=== PATIENT | male | born 1955 | race Caucasian/White ===

== ENCOUNTER 2017-03-10 11:12 | Inpatient (IN) | payer BC ==
[~2017-03-10] VITALS: Ht 170.2 cm; Wt 89.7 kg
--- NOTE | ~2017-03-10 | CATH ---
Cardiac Diagnostic Report Demographics Patient Name DAREK Howe Gender Male Date of 1955 Age 61 year(s) Patient Number [id number] Date of Study 03/12/2017 Visit Number [id number] Room Number G6312 [place] [id number] Ht 170.18 cm Wt 88.8 kg Referring Dane Tian MD Primary Physician Physician Performing Efstratiou Secondary Physician Physician Pelon Claire MD Diagnostic Efstratiou Assisting Physician Physician Pelon Claire MD Interventional Efstratiou Physician Manager Technical Training Physician Pelon Claire MD Findings and Conclusions Diagnostic Findings and Conclusion Grafts are patent - there is stenosis in the posterolateral branch of RCA responsible for inferior ischemia. Due to tortuosity it was impossible to fix. Diagnostic Recommendations Maximize medical therapy. Procedure Description The patient was brought to the diagnostic cardiac catheterization-EP laboratory in the fasting, non-sedated state. Informed consent was obtained in the written and verbal form after the risks and benefits were explained. The patient had no further questions and agreed to proceed. The planned puncture-incision site(s) were shaved and prepped with ChloraPrep and draped in the usual sterile manner. Conscious sedation, supplemental oxygen, and pain control medications were delivered by a registered nurse under physician guidance. Surface ECG rhythm, blood pressure measurement, and pulse oximetry were monitored throughout the procedure. Arterial access. The access site was infiltrated with lidocaine. The vessel was entered with the Seldinger technique. A sheath was advanced into the vessel and used for catheter placement. Selective left coronary angiography. A catheter was advanced into the left coronary vessel ostium under Fluoroscopic guidance. Contrast was injected by hand. Images were obtained in multiple projections. Selective right coronary angiography. A catheter was advanced into the right coronary vessel ostium under fluoroscopic guidance. Contrast was injected by hand. Images were obtained in multiple projections. Selective SVG angiography. A catheter was advanced into the graft proximal anastomosis under fluoroscopic guidance. Contrast was injected by hand. Images were obtained in multiple projections. Selective SVG angiography. A catheter was advanced into the graft proximal anastomosis under fluoroscopic guidance. Contrast was injected by hand. Images were obtained in multiple projections. Selective BRIZUELA graft angiography. A catheter was advanced into the left internal mammary graft ostium under fluoroscopic guidance. Contrast was injected by hand. Images were obtained in multiple projections. Arterial artery hemostasis was achieved. The patient was transferred to a regular nursing floor via cart accompanied by a nurse. The patient left the laboratory in stable condition. Diagnostic Cath Status: Urgent Procedure Procedure Type Diagnostic procedure:Angiography:, Coronary Angios w/Grafts Indications: Abnormal Stress Test. The procedure was explained in detail to the patient. Risks, complications and alternative treatments were reviewed. Written consent was obtained. Medications Reviewed with Patient prior to Procedure. Angiographic Findings Dominance: Right Cardiac Arteries and Lesion Findings LMCA: Lesion on LMCA: Mid subsection.10% stenosis . LAD: Lesion on Prox LAD: Ostial.100% stenosis . LCx: Lesion on Mid CX: 30% stenosis . RCA: Lesion on 1st RPL: Ramus: Lesion on Ramus: Proximal subsection.30% stenosis . Graft Lesions Lesion on Aorta Right to R PDA: 30% stenosis . Cardiac Grafts - There is a BRIZUELA graft that originates at the BRIZUELA and attaches to the Dist LAD (Patent). - There is a Vein graft that originates at the Aorta Left and attaches to the 1st Diag (Patent). - There is a Vein graft that originates at the Aorta Right and attaches to the R PDA. Coronary Tree Procedure Data Procedure Date Date: 03/12/2017Start: 08:44 AMEnd: 09:42 AM Entry Locations - Retrograde Percutaneous access was performed through the Right Femoral artery (Primary location). A 6 Fr sheath was inserted. Hemostasis was successfully obtained using Angio-Seal STS PLUS (St. Harpreet). Closure Comments: Deployed by Dr. Brito. Pressure held for 10 minutes by RT. Erika. Procedure Medications Order and Administration + + + +--------+ !Time !Medication !Dosage !Route ! + + + +--------+ !03/12/2017 08:43 AM !Versed !1 mg !I.V. ! + + + +--------+ !03/12/2017 08:45 AM !Oxygen !2 l/min !NC ! + + + +--------+ !03/12/2017 09:02 AM !Heparin (ACC_3) !7000 units !I.V. ! + + + +--------+ !03/12/2017 09:03 AM !Fentanyl !50 mcg !I.V. ! + + + +--------+ !03/12/2017 09:11 AM !Heparin (ACC_3) !2000 units !I.V. ! + + + +--------+ !03/12/2017 09:23 AM !Oxygen ! !NC ! + + + +--------+ !03/12/2017 09:26 AM !Fentanyl !50 mcg !I.V. ! + + + +--------+ !03/12/2017 09:28 AM !Oxygen !2 l/min !NC ! + + + +--------+ Devices Used - A6 Fr. BS JL 4 Diag. Catheterwas used for:Left coronary angiography. - A6 Fr. BS JR 4 Diag. Catheterwas used for:Right coronary angiography. - A6 Fr. BS IMT Diag. Catheterwas used for:BRIZUELA. - A6 Fr. MPA1 JJ Guide Catheterwas used for:SVG.Unable to cannulate the vessel. - A6 Fr. MPA1 90 cm Guide Catheterwas used for:RCA Intervention. Contrast Material - Isovue 840331 ml Fluoroscopy Time: Diagnostic: 14:12 minutes. Total: 14:12 minutes. Fluoroscopy Dose: Diagnostic: 1808 mGy. Total: 1808 mGy. Estimated Blood Loss: 30 ml. Additional [facility] PCI Information PCI Indication:PCI for high risk Non-STEMI or unstable angina. Medical History Performed Procedures and Imaging Results - Standard exercise stress testwas performed. Results were: Positive. Risk/Extent of ischemia was: Intermediate risk. Allergies - Morphine. Risk Factors The patient risk factors include:prior PCI on 08/30/2008; prior CABG on 06/16/2008;obesity, hypertension, family history of premature CAD, orally-treated diabetes mellitus, last creatinine: 0.7 mg/dl, creatinine clearance: 139.19 ml/min and dyslipidemia. Admission Data Admission Date: 03/10/2017 Admission Time: 01:13 PM Admit Source: Emergency department Insurance Payors: Private health insurance. Admission Medications + +------+------+ + + + + !Medication !Dosage!Times !Last !Last !Administered !Comments ! ! ! !Per !Delivery !Delivery ! ! ! ! ! !Day !Date !Time ! ! ! + +------+------+ + + + + !Beta Guadalupe! ! ! ! !Yes ! ! !(any) ! ! ! ! ! ! ! + +------+------+ + + + + !Statin (any)! ! ! ! !Yes ! ! + +------+------+ + + + + !Aspirin ! ! ! ! !Yes ! ! !(any) ! ! ! ! ! ! ! + +------+------+ + + + + !PETRONA ! ! ! ! !Yes ! ! !Inhibitor ! ! ! ! ! ! ! !(any) ! ! ! ! ! ! ! + +------+------+ + + + + !Non-Statin ! ! ! ! !Yes ! ! !(any) ! ! ! ! ! ! ! + +------+------+ + + + + Clinical Evaluation Leading to Procedure - The patient's CAD presentation was assessed as: Unstable angina. - The patient's anginal syndrome during the past two weeks was assessed as: Class IV according to the [place] Cardiovascular Society Classification System (CCS). Anti-anginal medications were prescribed during the past two weeks. The medications are: Beta Blockers and Ca channel Blockers. Snapshots Hemodynamics Condition: Rest O2 Consumption: Estimated: 230.59Heart Rate: 65 bpm Pressures (mmHg) +-----+ + !Site !Pressure ! +-----+ + !AO !146/80 (107) ! +-----+ + !AO !146/79 (106) ! +-----+ + Shunts Oxygen Values O2 Capacity 201.28 O2 Consumption 230.59 Discharge Data Discharge Date: 03/12/2017 Hospital Status: Inpatient Signatures dtt: Sofie Brito dtd: 03/12/17 0844 Physician Self Edit
--- NOTE | ~2017-03-10 | DS ---
PATIENT'S NAME: BRIDGETTE OSWALD [facility] AGE: 61 Y [address] [place]OM: [facility] [address] [place], [place] [address] LOCATION: GPCU ADMIT DATE: 03/10/2017 Discharge Summary DISCHARGE DATE: 03/12/2017 FAMILY PHYSICIAN: Keith Neil MD ATTENDING PHYSICIAN: Keith Neil DISCHARGE DIAGNOSES: 1. Chest pain. 2. Coronary artery disease. 3. Hypertension. 4. Diabetes mellitus type 2. DISCHARGE MEDICATIONS: 1. Aspirin 81 mg daily. 2. Vitamin D3 5000 units daily. 3. Tresiba 56 units daily. 4. Mobic 15 mg daily. 5. Crestor 20 mg daily. 6. Amlodipine/benazepril 5/20 one tablet daily. 7. Co Q10 daily. 8. Multivitamin daily. HOSPITAL COURSE: The patient was admitted to the hospital secondary to chest pain. He was seen in consultation by Dr. Raymundo. The patient underwent heart catheterization. It was felt medical management was the best option for Mr. Oswald. He was monitored postcatheterization and was doing well and stable and had no chest pain or shortness of breath prior to discharge. LAB AND X-RAY: Please see chart for details. KEITH NEIL MD CSM/modl /[id number] d: t: 04/17/17 0300, DISCHARGE SUMMARY
--- NOTE | ~2017-03-10 | ER ---
PATIENT'S NAME: BRIDGETTE OSWALD [facility] AGE: 61 Y [address] ROOM: [place] [address] LOCATION: GPCU ADMIT DATE: 03/10/2017 ER/Outpatient Report DISCHARGE DATE: FAMILY PHYSICIAN: Rainer Vela MD ATTENDING PHYSICIAN: Rainer Vela Admission date and time documented on the medical record. I saw the patient at 1125 hours. CHIEF COMPLAINT: Left anterior chest pain. 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 Developed some left anterior chest pressure radiating to his left shoulder. Went to [facility] and subsequently was transferred over here for cardiac workup. The patient is known to have atherosclerotic ischemic heart disease with coronary artery disease. He has had three-vessel coronary artery bypass graft. He has also had a cardiac cath with PTCA and stent placement. We did give him 4 baby aspirin orally here and started him on a nitroglycerin drip. His pain initially was about a 6-7/10, was about 3- 5/10 here in the emergency department. Went down to 0 with IV nitroglycerin drip. No recent cough, cold, flus, fever, chills, or sweats. No headache, eyes, ears, nose, throat, neck, or spine pain. No lightheadedness, dizziness, syncope, or near syncope. The patient had no diaphoresis, nausea, vomiting, shortness of breath or lightheadedness. No abdominal pain. No diarrhea. No urinary symptoms. No joint or muscle swelling, redness, or pain. No skin eruptions or rash. The patient does have insulin-dependent diabetes mellitus type 2. No other endocrine problems, neuro changes, or psych issues. HOME MEDICATIONS: See attached medication list. ALLERGIES: MORPHINE, SULFATE. SOCIAL HISTORY: Nonsmoker. Occasional intake of alcohol. SIGNIFICANT PAST MEDICAL HISTORY: Atherosclerotic ischemic heart disease with coronary artery disease, degenerative disk disease, insulin-dependent diabetes mellitus type 2, hypertension, dyslipidemia. OPERATIONS: PATIENT'S NAME: BRIDGETTE OSWALD [facility] AGE: 61 Y [address] ROOM: [place] [address] LOCATION: GPCU ADMIT DATE: 03/10/2017 ER/Outpatient Report DISCHARGE DATE: FAMILY PHYSICIAN: Rainer Vela MD ATTENDING PHYSICIAN: Rainer Vela Left ankle surgery, cervical diskectomy with cervical fusion, cardiac catheterization with PTCA and stenting. Three-vessel coronary artery bypass graft. REVIEW OF SYSTEMS: All systems reviewed by me are negative with the exception of those discussed in the history of present illness. PHYSICAL EXAMINATION: VITAL SIGNS: Temperature 98, pulse 67, respirations 16, blood pressure 147/84, O2 saturation on room air is 96%. Alis Coma Scale was 15. HEAD: Normocephalic. Eyes, ears, nose, throat, clear. NECK: Negative. SPINE: Negative. LUNGS: Clear. Good air flow. No rales, rhonchi, or wheezes. HEART: Regular. Pulses are palpable. No chest wall or ribcage pain to palpation. ABDOMEN: Soft, nondistended, and nontender. Good bowel tones. No organomegaly or abnormal mass palpable. No CVA tenderness. EXTREMITIES: No peripheral edema, cyanosis, or deformity. NEUROVASCULAR: Intact. SKIN: Clear. No skin eruptions or rash. IMAGING: Chest x-ray showed no acute infiltrate or changes. We will review x-ray with the radiologist. EKG showed sinus rhythm, rate of 67. Right bundle-branch block, inferior changes probably old. LABORATORY DATA: CMS was normal except for an elevated glucose of 156. Magnesium was 2.1. CPK was 162. [id number] cardiac enzymes showed a CK-MB of 4.9. Troponin less than 0.04. CRP was less than 0.29. TSH was 1.43. ProBNP was 74. Sedimentation rate was 2. Lactate was 1.5. Procalcitonin was less than 0.05. D-dimer was 0.19, white count was 8600, 63 segs, 25 lymphs, 9 monos, 2 eo's, 1 baso. Hemoglobin is 15.4, hematocrit 44.4, platelet count is 190,000. PTT was 25, pro-time was 9.8, with an INR of 0.93. Did give the patient 4 baby aspirin orally and started him on IV nitroglycerin drip with marked improvement in his chest discomfort. IMPRESSION: 1. Left anterior chest pain radiating to the left shoulder, unstable angina. 2. History of atherosclerotic ischemic heart disease with coronary artery disease, status post cardiac catheterization with PTCA and stenting and a three-vessel coronary artery bypass graft. PATIENT'S NAME: BRIDGETTE OSWALD [facility] AGE: 61 Y [address] ROOM: [address] [place] [id number] LOCATION: [facility] ADMIT DATE: 03/10/2017 ER/Outpatient Report DISCHARGE DATE: FAMILY PHYSICIAN: Rainer Vela MD ATTENDING PHYSICIAN: Rainer Vela 3. History of degenerative disk disease. 4. Insulin-dependent diabetes mellitus type 2. 5. Hypertension. 6. Dyslipidemia. PLAN: Discussed the patient with Dr. Rainer Vela, the patient's personal physician. We will admit the patient to PCU telemetry for further evaluation. Cardiac consultation and treatment as needed. Discussion with the patient my findings and recommendations, he understands. Accumulated critical care time 30 minutes. MD ALCIDES OBRIEN/modl /[id number] d: 03/10/172036 t: 03/11/17607, OUTPATIENT REPORT
--- NOTE | ~2017-03-10 | DS ---
PATIENT'S NAME: BRIDGETTE OSWALD [facility] AGE: 61 Y [address] ROOM: [facility] [address] [place], [place] [address] LOCATION: GPCU ADMIT DATE: 03/10/2017 Discharge Summary DISCHARGE DATE: 03/12/2017 FAMILY PHYSICIAN: Keith Neil MD ATTENDING PHYSICIAN: Keith Neil DISCHARGE DIAGNOSES: 1. Chest pain. 2. Coronary artery disease. 3. Hypertension. 4. Diabetes mellitus type 2. DISCHARGE MEDICATIONS: 1. Aspirin 81 mg daily. 2. Vitamin D3 5000 units daily. 3. Tresiba 56 units daily. 4. Mobic 15 mg daily. 5. Crestor 20 mg daily. 6. Amlodipine/benazepril 5/20 one tablet daily. 7. Co Q10 daily. 8. Multivitamin daily. HOSPITAL COURSE: The patient was admitted to the hospital secondary to chest pain. He was seen in consultation by Dr. Raymundo. The patient underwent heart catheterization. It was felt medical management was the best option for Mr. Oswald. He was monitored postcatheterization and was doing well and stable and had no chest pain or shortness of breath prior to discharge. LAB AND X-RAY: Please see chart for details. KEITH NEIL MD CSM/modl /[id number] d: 04/17/17243 t: 06/17/172052, DISCHARGE SUMMARY
--- NOTE | ~2017-03-10 | ESTC ---
Cardiac Perfusion Imaging Demographics Patient Name DAREK Howe Gender Male Patient Number [id number] Race Visit Number [id number] Ethnicity Corporate ID Room Number G6312 Accession Number [id number] Height 67 inches Date of 1955 Weight 195 pounds Alethea VELAZCO Interpreting Julia Dowling Date of study 03/11/2017 Physician Supervising /SHAYNAP Shirley Tamayo APRN [place] Technologist Ordering Physician Alisha Claire MD biomass technician Stress ECG Reading Shirley Tamayo APRN Nurse Sena March Physician ferry hand Procedure Type: Nuclear Stress Test:Cardiolite Stress Test Procedure Start time: 03/11/2017 09:11 Indications: Chest pain. Risk Factors The patient risk factors include:prior PCI on 07/11/2008;obesity, hypertension, family history of premature CAD and dyslipidemia. Conclusions Summary Perfusion Images: The overall quality of the study is good. Left ventricular cavity is noted to be normal on the stress and normal on the rest images. There is no evidence of abnormal lung activity. The right ventricle is not visualized an cannot be assessed. Impression EKG portion of exercise stress is indeterminate for ischemia by diagnostic criteria due to baseline abnormalities. Myocardial perfusion imaging is mildly abnormal. The images reveal a moderate size/moderate reversible defect in the basal to mid inferior wall consistent with ischemia . Overall left ventricular systolic function was normal. Calculated LVEF is 41% and TID ratio is 0.90. This is a intermediate risk stress test. There are no previous studies for comparison . Stress Protocols Resting ECG Sinus rhythm with RBBB Pre-stress physical exam: Patient assessed by Yosvany DISLA prior to testing. Peak HR:150 bpm HR response: Appropriate Peak BP:178/88 mmHg BP response: Appropriate Predicted HR: 159 bpm HR/BP product:43643 % of predicted HR: 94 ECG Findings Indeterminate ECG due to baseline abnormalities. Arrhythmias No rhythm abnormality. Symptoms Shortness of breath. Chest Pressure Complications Procedure complication: None. Stress Interpretation Patient walked for 8 minutes through 3 stages of ZULEYMA protocol. Appropriate hemodynamic response to exercise. No significant ST-T wave changes with exercise. EKG portion is indeterminate for ischemia by diagnostic criteria due to baseline abnormalities. The Darling Treadmill score was 8 .This corresponds to a low risk stress test. Will correlate with nuclear images. Imaging Results Summed scores - Summed stress score: 8 - Summed rest score: 13 - Summed difference score: -5 Stress ejection Ejection fraction:40 % EDV :117 ml ESV :70 ml Stroke volume :47 ml LV mass :154 gr Imaging Protocols Rest Stress Isotope:Tc99m Sestamibi IV Isotope: Tc99m Sestamibi IV Isotope dose:13.3 mCi Isotope dose:41.6 mCi Date:03/11/2017 08:10 Date:03/11/2017 09:31 Technique: SPECT Technique: Gated Supine SPECT Supine IV remains in place after procedure. Scan Time:45-60 minutes post Scan Time:15-30 minutes post injection injection Medical History Admission Data Admission date: 03/10/2017 Admission Time: 13:12 Hospital Status: Inpatient. Signatures dtt: NICHO LOZADA dtd: 03/11/17 0911 Physician Self Edit
--- NOTE | ~2017-03-10 | CON ---
PATIENT'S NAME: BRIDGETTE OSWALD [facility] AGE: 61 Y [address] ROOM: [address] [place], [place] [id number] LOCATION: GPCU ADMIT DATE: 03/10/2017 Consultation DISCHARGE DATE: FAMILY PHYSICIAN: Rainer Vela MD ATTENDING PHYSICIAN: Rainer Vela DATE OF CONSULTATION: 03/10/2017 HISTORY OF PRESENT ILLNESS: This is a 61-year-old male who was admitted by Dr. Rainer Vela for chest pain. The patient has known coronary artery disease. He presented with unstable angina in 2007. Catheterization showed severe coronary artery disease and the patient underwent a triple bypass by Dr. Esparza here in this hospital. A month later, his main aoc director combat plans officer, Dr. Dyer put a stent in a small caliber obtuse marginal which had not been bypassed. After that the patient did well without any episodes of angina until this morning. 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 He cleared snow and then afterwards, he noticed that he had a pressure in his precordium. The previous angina was substernal, but he decided to take it seriously. He came to the emergency room by private vehicle accompanied by his . Evaluation there showed that he still had about 3/10 chest pain. His electrocardiogram showed no acute changes. Two sets of cardiac enzymes were negative. The pain improved with intravenous nitroglycerin. The patient was admitted for further management. REVIEW OF SYSTEMS: Otherwise, negative. He has hypertension, but does not check his blood pressure at home. He has diabetes and he does admit his hemoglobin A1c was 9 and after some adjustment in his medication is down to 7.2%, if his recollection is correct. He has no thyroid disease. Denies any weight loss or gain. No chills or fever or cough. OUTPATIENT MEDICATIONS: Include: 1. Metoprolol 25 mg 1/2 tablet twice a day. 2. Simvastatin 20 mg in a.m. and 40 mg in the evening. 3. Amlodipine and benazepril 25/20 once a day. 4. Metformin 1000 mg twice a day. 5. Aspirin 81 mg daily. 6. Meloxicam 15 mg daily. 7. Apidra 8 units with the largest meal. 8. Tresiba 56 units at bedtime. 9. Also takes vitamin E 400 units daily. 10. Glucosamine and chondroitin 1500 mg in a.m. 11. Acetaminophen 500 mg twice a day. PATIENT'S NAME: BRIDGETTE OSWALD [facility] AGE: 61 Y [address] ROOM: [id number] [place], [place] [address] LOCATION: [facility] ADMIT DATE: 03/10/2017 Consultation DISCHARGE DATE: FAMILY PHYSICIAN: Rainer Vela MD ATTENDING PHYSICIAN: Rainer Vela 12. Fish oil 360 mg daily. 13. Coenzyme Q10, 100 mg daily. 14. Centrum Silver once a day. 15. Vitamin D 5000 units daily. PAST SURGICAL HISTORY: Include: His C-spine operation and left ankle repair. FAMILY HISTORY: His father had valvular heart disease and had a valve replaced in 1969 and suddenly from valve malfunction when he was 58. His mother four months after she gave to the patient from metastatic breast cancer. He has a sister with multiple sclerosis. He has a brother with melanoma and another brother who is healthy. SOCIAL HISTORY: The patient is , nonsmoker, and nondrinker. PHYSICAL EXAMINATION: VITAL SIGNS: Pleasant middle-age male. Blood pressure 146/82, heart rate 65, he is 5 feet 7 inches, and weighs 88.8 kg. GENERAL: He is alert and oriented. SKIN: Warm and dry. NECK: Supple. There is no jugular venous distention. No carotid bruits. No thyromegaly. No lymphadenopathy. CHEST: Lungs are clear. CARDIOVASCULAR: The heart is regular with a 4th heart sound. ABDOMEN: Obese and nontender. No organomegaly. EXTREMITIES: Lower extremities, trace peripheral edema and 2+ dorsalis pedis pulses. DIAGNOSTIC STUDIES: Electrocardiogram shows sinus rhythm and right bundle branch block without acute ST depression or elevation. Cardiac enzymes, proBNP are all in the normal range. Renal function is normal. The D-dimer is not elevated. Complete blood count, normal. Chest x-ray is not in full inspiration so the heart appears enlarged, but this could be wrong. IMPRESSION: New-onset angina in a patient who is angina free for many years after coronary artery bypass surgery. It is possible that he has progression of his disease. His risk factors did not appear to be optimally controlled. Right now, he does not have high-risk characteristics. We will continue the intravenous nitroglycerin, schedule a nuclear stress test in a.m. if his enzymes turn positive, we will proceed with direct catheterization. PATIENT'S NAME: BRIDGETTE OSWALD [facility] AGE: 61 Y [address] ROOM: [address] [place] [id number] LOC[facility]: [facility] ADMIT DATE: 03/10/2017 Consultation DISCHARGE DATE: FAMILY PHYSICIAN: Rainer Vela MD ATTENDING PHYSICIAN: Rainer Vela Thank you for allowing me to participate in the care of your patient. PANAYOTISNORI JENNINGS MD PE/ayo /[id number] d: 03/10/17 2226 t: 03/12/17 1001, CONSULTATION REPORT
[2017-03-10 11:30] LABS: BASOPHIL % 0.5 %; EOSINOPHIL # 0.2 K/uL (0.0-0.5); EOSINOPHIL % 2.3 %; HEMATOCRIT 44.4 % (37.0-53.0); HEMOGLOBIN 15.4 g/dL (11.0-16.0); IMMATURE GRANULOCYTE % 0.5 %; LYMPHOCYTE # 2.2 K/uL (0.8-4.0); LYMPHOCYTE % 25.1 %; MCH 30.6 pg (27.0-34.0); MCHC 34.7 gm/dL (32.0-36.5); MCV 88.1 fl (83.0-98.0); MONOCYTE # 0.7 K/uL (0.0-1.0); MONOCYTE % 8.5 %; MPV 10.8 fl (9.4-12.4); NEUTROPHIL # (ANC) 5.4 K/uL (1.4-9.0); NEUTROPHIL % 63.1 %; NRBC % 0 /100WBC (0-0.00); PLATELET COUNT 190 K/uL (150-450); RBC 5.04 M/uL (3.50-5.50); RDW-CV 12.8 % (11.9-14.6); WBC 8.6 K/uL (4.0-11.0)
[2017-03-10 11:41] LABS: INR - (THERAPEUTIC) 0.93 (0.92-1.07); PROTIME 9.8 SECONDS (9.8-11.4); PTT 25 SECONDS (25-32)
[2017-03-10 11:51] LABS: ALBUMIN 4.4 gm/dL (3.5-5.0); ALK PHOS 85 IU/L (33-138); ALT 53 IU/L (12-78); ANION GAP 10.9 (10.0-19.0); AST 20 IU/L (10-40); BLOOD UREA NITROGEN 15 mg/dL (6-24); CALCIUM 8.8 mg/dL (8.5-10.5); CHLORIDE 104 mMol/L (96-110); CO2 28 mMol/L (22-32); CPK 162 IU/L (35-332); CREATININE 0.7 mg/dL (0.6-1.3); ESTIMATED GFR (MDRD EQUATION) > 60; MAGNESIUM 2.1 mg/dL (1.8-2.6); POTASSIUM 3.9 mMol/L (3.7-5.1); SODIUM 139 mMol/L (135-145); TOTAL BILIRUBIN 0.5 mg/dL (0.0-1.5); TOTAL PROTEIN 7.2 g/dL (6.0-8.4)
[2017-03-10 13:42] LABS: CPK 136 IU/L (35-332)
--- NOTE | 2017-03-10 14:43 | NUR ---
Patient is 61 yo male admitted this afternoon after experiencing chest pressure this morning that resembled pressure he experienced in 2007 when he needed the CABG. that pressure was in the center of his chest, this pressure was more to the left side of his chest, but he thought it was the same kind of pressure. IV is infusing in left hand without erythema or edema noted at the site. Education is given as documented. patient and deny questions. pneumatics are on bilat calves, pt steffen well. call light is within reach, patient denies needs. Report is given to HARESH Cline.
[2017-03-10] MEDS ORDERED: ZOCOR20 MG PO (14:54)
[2017-03-10] MEDS ORDERED: SIMVASTATIN40 MG PO (14:55)
[2017-03-10] MEDS ORDERED: AMLODIPINE-BEN1 EAC4 PO (14:57)
[2017-03-10] MEDS ORDERED: GLUCOPHAGE1000 MG PO (14:58)
[2017-03-10] MEDS ORDERED: TRESIBA FL200 UNIT/1 SUB-Q (14:58)
[2017-03-10] MEDS ORDERED: LOPRESSOR25 MG PO (14:58)
[2017-03-10] MEDS ORDERED: MOBIC15 MG PO (14:58)
[2017-03-10] MEDS ORDERED: VITAMIN E400 UNI2 PO (14:59)
[2017-03-10] MEDS ORDERED: ASPIRIN LO-DOSE81 MG PO (14:59)
[2017-03-10] MEDS ORDERED: GLUCOSAMINE &1 EAC1 PO (14:59)
[2017-03-10] MEDS ORDERED: TYLENOL EXTRA500 MG PO (15:00)
[2017-03-10] MEDS ORDERED: FISH OIL CONCE1 EAC1 PO (15:04)
[2017-03-10] MEDS ORDERED: CENTRUM SILVER1 TAB PO (15:05)
[2017-03-10] MEDS ORDERED: CO Q-10100 MG PO (15:05)
[2017-03-10] MEDS ORDERED: VITAMIN D35000 UNI1 PO (15:06)
--- NOTE | 2017-03-10 17:25 | NUR ---
Significant Event: pt arrived from ER this afternoon. No c/o chest pain. NPO at 0000 for stress test in am. ACHS accuchecks. Nitro at 5mcg now, ns tko. Pt here with him. Standby asst. Follow up:
[2017-03-10 17:26] LABS: BILIRUBIN URINE NEGATIVE (NEGATIVE); BLOOD URINE NEGATIVE /UL (NEGATIVE); COLOR URINE YELLOW (YELLOW); GLUCOSE URINE NEGATIVE (NEGATIVE); KETONE URINE NEGATIVE (NEGATIVE); LEUKOCYTES URINE NEGATIVE /UL (NEGATIVE); NITRITE URINE NEGATIVE (NEGATIVE); PROTEIN URINE NEGATIVE (NEGATIVE); SPEC GRAVITY URINE 1.005 (1.003-1.035); TURBIDITY URINE CLEAR (CLEAR); UROBILINOGEN URINE NORMAL (NORMAL)
[2017-03-10 19:51] LABS: CPK 104 IU/L (35-332)
[2017-03-11 01:25] LABS: CPK 96 IU/L (35-332)
--- NOTE | 2017-03-11 03:50 | NUR ---
Significant Event: Patient alert and oriented x3. SBP 100s-150s. HR 60s-70s. All other vital signs stable. On RA. Left hand PIV with NS TKO and Nitro gtt at 5mcg. No complaints of chest pain, headache, or nausea. Trending cardiac enzymes. All continue to be negative. Self administered insulin pen HS dosage and 2units insulin per sliding scale. NPO since midnight. 1400ml uop. Stand-by assist. Patient calm and cooperative with all cares. Follow up: Cardiac Stress Test this morning. Will continue to monitor SBP, HR, and chest pain.
[2017-03-11 07:24] LABS: CPK 86 IU/L (35-332)
--- NOTE | 2017-03-11 19:27 | NUR ---
PATIENT HAD STRESS TEST TODAY. PLAN FOR HEART CATH IN AM. PATIENT'S VSS, STATED NO C/O PAIN THIS SHIFT. AT BEDSIDE. NPO AFTER MIDNIGHT.
[2017-03-12 04:35] LABS: BASOPHIL % 0.6 %; EOSINOPHIL # 0.3 K/uL (0.0-0.5); HEMATOCRIT 43.4 % (37.0-53.0); HEMOGLOBIN 14.8 g/dL (11.0-16.0); IMMATURE GRANULOCYTE % 0.6 %; LYMPHOCYTE # 1.9 K/uL (0.8-4.0); LYMPHOCYTE % 28.5 %; MCH 30.4 pg (27.0-34.0); MCHC 34.1 gm/dL (32.0-36.5); MCV 89.1 fl (83.0-98.0); MONOCYTE # 0.7 K/uL (0.0-1.0); MONOCYTE % 10.1 %; MPV 10.6 fl (9.4-12.4); NEUTROPHIL # (ANC) 3.8 K/uL (1.4-9.0); NEUTROPHIL % 56.2 %; NRBC % 0 /100WBC (0-0.00); PLATELET COUNT 184 K/uL (150-450); RBC 4.87 M/uL (3.50-5.50); RDW-CV 12.9 % (11.9-14.6); WBC 6.8 K/uL (4.0-11.0)
[2017-03-12 04:44] LABS: INR - (THERAPEUTIC) 0.95 (0.92-1.07); PTT 26 SECONDS (25-32)
[2017-03-12 04:58] LABS: ALBUMIN 3.8 gm/dL (3.5-5.0); ALK PHOS 66 IU/L (33-138); ALT 49 IU/L (12-78); AST 21 IU/L (10-40); BLOOD UREA NITROGEN 18 mg/dL (6-24); CALCIUM 8.9 mg/dL (8.5-10.5); CHLORIDE 106 mMol/L (96-110); CO2 28 mMol/L (22-32); CREATININE 0.7 mg/dL (0.6-1.3); ESTIMATED GFR (MDRD EQUATION) > 60; SODIUM 141 mMol/L (135-145); TOTAL BILIRUBIN 0.5 mg/dL (0.0-1.5); TOTAL PROTEIN 6.4 g/dL (6.0-8.4)
--- NOTE | 2017-03-12 05:15 | NUR ---
Significant Event: Patient alert and oriented x3. SBP 130s-160s. HRs 60s-80s. All other vital signs stable. On RA. Bilateral groins prepped per orders. NS at 100ml/hr started at 0500 to left hand PIV. NPO since midnight. No complaints of chest pain this shift. Patient independent in room and halls. Showered this shift. 650ml uop. Patient calm and cooperative with all cares. Follow up: Heart Cath at [address] Bennett
--- NOTE | 2017-03-12 16:44 | NUR ---
Significant Event: pt had heart cath, no intervention done, medication trial. R)groin had hematoma, pressure held on floor and reduced, had hold pressure another time after but is not soft, femstop removed and dressing applied. Pulses 2+. IVF done. Pt here and helps pt. Urinal used well. BMx1. Follow up:
[2017-03-12] MEDS ORDERED: COREG12.5 MG PO (18:25)
[2017-03-12] MEDS ORDERED: CRESTOR20 MG PO (18:26)
--- NOTE | 2017-03-12 18:50 | NUR ---
d-dr bowden dc, pt up to bathroom several times and groin still soft no bruise or bleeding i-vitals stable, groin stable, no c/o, teaching done on all meds with changes explained, info given on cath/groin/new meds and changes in meds explained, appt set for dr Raymundo, pt to make appt for dr simons, r-pt has no more questions p-ta took pt out per wc to car
== END 2017-03-12 18:50 | disposition disaster alternative care site (69) | DRG 287 ==
LOC: GMED 11:12 → GPCU 13:12
PROVIDERS: Emergency Medicine; Internal Medicine Cardiovascular Disease; Nurse Practitioner; ADMIT Family Medicine
PROC: 4A023N8 Measurement of Cardiac Sampling and Pressure, Bilateral, Percutaneous Approach (ICD-10-PCS; principal; 2017-03-12)
PROC: B213YZZ Fluoroscopy of Multiple Coronary Artery Bypass Grafts using Other Contrast (ICD-10-PCS; 2017-03-12)
DX: I25.110 Atherosclerotic heart disease of native coronary artery with unstable angina pectoris (principal); B02.9 Zoster without complications; I10 Essential (primary) hypertension; E11.9 Type 2 diabetes mellitus without complications; E78.5 Hyperlipidemia, unspecified; Z98.61 Coronary angioplasty status; Z92.89 Personal history of other medical treatment; Z98.890 Other specified postprocedural states; Z95.1 Presence of aortocoronary bypass graft
CPT/HCPCS: A9500; C1760; C1769; C1887; C1894; J1644; J1650; J2250; J3010; J7030